=== PATIENT | male | born 1990 | race Caucasian/White ===

== ENCOUNTER 2018-06-04 08:53 | Emergency (ER) | payer SELFPAY ==
[~2018-06-04] VITALS: Ht 180.3 cm; Wt 65.6 kg
[2018-06-04] MEDS ORDERED: CEFTRIAXONE SODIUM 250 MG/VIAL IM ONE (10:30)
[2018-06-04] MEDS ORDERED: LIDOCAINE HCL 1% 20ML VIAL (Pyxis) INJ INFIL ONE (10:30)
[2018-06-04] MEDS ORDERED: AZITHROMYCIN 500 MG TABLET PO ONE (10:30)
[2018-06-04 10:40] VITALS: BP 125/84
[2018-06-04 11:14] LABS: *AMPHETAMINES SCREEN URINE NEGATIVE (NEGATIVE); *BARBITURATES SCREEN URINE NEGATIVE (NEGATIVE); *BENZODIAZEPINES SCREEN URINE PRESUMTIVE POSITIVE (NEGATIVE); *COCAINE SCREEN URINE NEGATIVE (NEGATIVE); METHADONE URINE SCREEN NEGATIVE (NEGATIVE); OPIATES URINE SCREEN NEGATIVE (NEGATIVE)
[2018-06-04 11:15] LABS: CANNABINOID URINE SCREEN PRESUMTIVE POSITIVE (NEGATIVE); PHENCYCLIDINE URINE SCREEN NEGATIVE (NEGATIVE)
[2018-06-06 04:18] LABS: CHLAMYDIA TRACHOMATIS NAA Negative (Negative); NEISSERIA GONORRHOEAE NAA Negative (Negative)
== END 2018-06-04 11:50 | disposition home or self-care (01) ==
LOC: ER 08:53
DX: A63.8 Other specified predominantly sexually transmitted diseases (principal); K62.89 Other specified diseases of anus and rectum; F12.10 Cannabis abuse, uncomplicated; F15.10 Other stimulant abuse, uncomplicated; F31.9 Bipolar disorder, unspecified; F43.10 Post-traumatic stress disorder, unspecified; F42.8 Other obsessive-compulsive disorder; F17.200 Nicotine dependence, unspecified, uncomplicated
CPT/HCPCS: 80305; 87491; 87591; 96372; 99283; J0696; J3490

== ENCOUNTER 2018-09-29 13:56 | Emergency (ER) | payer SELFPAY ==
[~2018-09-29] VITALS: Ht 180.3 cm; Wt 62.0 kg
[2018-09-29] MEDS ORDERED: KETOROLAC 60MG/2ML VIAL IM ONE (15:15)
[2018-09-29] MEDS ORDERED: NEOMY SULF/BACITRAC ZN/POLY OINT 28GM TOP SCH (15:15)
[2018-09-29 15:52] VITALS: BP 122/79
== END 2018-09-29 15:54 | disposition home or self-care (01) ==
LOC: ER 13:56
DX: T23.211A Burn of second degree of right thumb (nail), initial encounter (principal); F31.9 Bipolar disorder, unspecified; F12.10 Cannabis abuse, uncomplicated; F15.10 Other stimulant abuse, uncomplicated; F17.200 Nicotine dependence, unspecified, uncomplicated; Z88.0 Allergy status to penicillin; X08.8XXA Exposure to other specified smoke, fire and flames, initial encounter; Y93.89 Activity, other specified; Y92.89 Other specified places as the place of occurrence of the external cause; Y99.8 Other external cause status
CPT/HCPCS: 16000; 96372; 99284; J1885; 99283

== ENCOUNTER 2018-11-05 21:54 | Emergency (ER) | payer SELFPAY ==
[~2018-11-05] VITALS: Ht 180.3 cm; Wt 67.8 kg
[2018-11-06] MEDS: FAMOTIDINE 20MG TABLET PO ONE (01:52)
[2018-11-06] MEDS: DIPHENHYDRAMINE 25MG CAPSULE PO ONE (01:52)
[2018-11-06 02:02] VITALS: BP 115/75
== END 2018-11-06 02:00 | disposition home or self-care (01) ==
LOC: ER 21:54
DX: T78.40XA Allergy, unspecified, initial encounter (principal); F31.9 Bipolar disorder, unspecified; F12.10 Cannabis abuse, uncomplicated; F15.10 Other stimulant abuse, uncomplicated; Z88.0 Allergy status to penicillin
CPT/HCPCS: 99283; Q0163